=== PATIENT | male | born 1995 | race Caucasian/White ===

== ENCOUNTER 2016-10-25 13:58 | Emergency (ER) | payer OTHER ==
[~2016-10-25] VITALS: Ht 182.9 cm; Wt 73.0 kg
[2016-10-25 14:00] VITALS: TEMP 36.7; Ht 182.9 cm; Wt 73.0 kg
[2016-10-25 14:33] LABS: BASO % 0.3 %; BASO ABS # 0.02 K/uL (0-0.2); COMPLETE YES; EOS % 1.7 %; HEMATOCRIT 44.1 % (42-52); IG% 0.1 %; LYMPH % 42.8 %; LYMPH ABS # 2.98 K/uL (1.2-3.4); MEAN CELL VOLUME 89.1 fL (80-100); MEAN CORPUSCULAR HEMOGLOBIN 30.5 pg (25-34); MEAN CORPUSCULAR HGB CONC 34.2 g/dl (32-36); MEAN PLATELET VOLUME 9.1 fL (7.4-10.4); MONO % 6.6 %; NEUT % 48.5 %; PLATELET COUNT 248 K/uL (130-400); RED BLOOD COUNT 4.95 M/uL (4.7-6.1); WHITE BLOOD COUNT 6.96 K/uL (4.8-10.8)
[2016-10-25 14:45] LABS: ALT/SGPT 22 U/L (12-78); AST/SGOT 12 U/L (15-37); BLOOD UREA NITROGEN 11 mg/dl (7-18); BUN/CREATININE RATIO 12.2 (10-20); CALCIUM 9.2 mg/dl (8.5-10.1); CARBON DIOXIDE 31 mmol/L (21-32); CHLORIDE 105 mmol/L (98-107); CREATININE 0.94 mg/dl (0.60-1.40); GLUCOSE 87 mg/dl (70-99); POTASSIUM 4.1 mmol/L (3.5-5.1); SODIUM 142 mmol/L (136-145)
[2016-10-25 14:50] LABS: ALKALINE PHOSPHATASE 64 U/L (45-117)
--- NOTE | 2016-10-25 15:04 | DIAGNOSTIC IMAGING REPORT ---
SINGLE VIEW CHEST CLINICAL HISTORY: Fever. FINDINGS: 2 AP, portable, upright chest radiographs are obtained. No prior studies are available for comparison at the time of dictation. The examination is degraded by portable technique and patient rotation. The cardiomediastinal silhouette is unremarkable. The lungs and pleural spaces are clear. No pneumothorax is seen. The bony thorax is grossly intact. Nipple piercings are noted. IMPRESSION: No active disease in the chest. Electronically signed by: Mark Munson M.D. 10/25/2016 3:03 PM Dictated Date/Time: 10/25/2016 3:02 PM
--- NOTE | 2016-10-25 16:13 | EMERGENCY ROOM VISIT NOTE ---
History Report prepared by Arcelia: Allie Luna Under the Supervision of: Dr. Ramez Espino D.O. First contact with patient: 14:17 Chief Complaint: CARDIAC ASSESSMENT Stated Complaint: CHEST HEAVINESS,R SIDE FACE,ARM NUMBNESS Nursing Triage Summary: pt to the ED with c/o chest heaviness for several days History of Present Illness The patient is a 21 year old male who presents to the Emergency Room requesting a cardiac assessment for his symptoms that started 2 days ago. The patient states that he was at work this past morning when he started to experience right-sided facial numbness and numbness in the right side of his tongue. He then started to experience numbness in his right arm. He states that his symptoms resolved on their own, but after the numbness he resolved he started to experience a headache and chest heaviness. The patient states that he has been experiencing both the headache and chest heaviness intermittently since then. 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 The patient's friend states that the patient also has a history of heart murmur , but his PCP told him not to worry about it when he was younger. The patient's father has a history of anxiety and an irregular heartbeat. The patient denies any other significant family cardiac history as well as any family history of blood clots. Source of History: patient, spouse/significant other Onset: 2 days ago Position: other (global) Quality: other (cardiac assessment) Timing: intermittent Associated Symptoms: + headache, + chest pain (heaviness), + numbness ( right side of face, right side of tongue, right arm) Review of Systems See HPI for pertinent positives & negatives. A total of 10 systems reviewed and were otherwise negative. Past Medical & Surgical Medical Problems: (1) Candelario's palsy (2) History of cardiac murmur Family History Abnormal heart rhythm in father Anxiety disorder Social History Smoking Status: Current Every Day Smoker Marital Status: single Occupation Status: employed Current/Historical Medications No Active Prescriptions or Reported Meds Allergies Coded Allergies: No Known Allergies (Unverified , 10/25/16) Physical Exam Vital Signs Date Time Temp Pulse Resp B/P (MAP) Pulse Ox O2 Delivery O2 Flow Rate FiO2 10/25/16 16:20 72 18 114/62 97 Room Air 10/25/16 16:00 69 97 Room Air 10/25/16 14:15 78 10/25/16 14:00 36.7 86 16 144/88 100 Room Air Physical Exam VITAL SIGNS: were reviewed as above. GENERAL:Non-toxic in appearance. SKIN: Warm dry and pink. HEAD: Normocephalic and atraumatic. OROPHARYNX: Is clear and moist NECK: Supple without lymphadenopathy or meningismus. LUNGS: clear. HEART: Regular rate and rhythm. ABDOMEN: Soft and nontender. EXTREMITIES: Warm and well perfused. NEUROLOGICALLY: Awake alert and oriented without focal deficit. Cranial nerves 2 -12 are intact. There is no pronator drift. Cerebellar testing is within normal limits. There is no nystagmus. There is no facial droop. Speech is clear. Vision is grossly normal. MUSCULOSKELETAL: Good muscle tone. No evidence of trauma. Medical Decision & Procedures ER Provider Diagnostic Interpretation: Radiology results as stated below per my review and radiologist interpretation: SINGLE VIEW CHEST FINDINGS: 2 AP, portable, upright chest radiographs are obtained. No prior studies are available for comparison at the time of dictation. The examination is degraded by portable technique and patient rotation. The cardiomediastinal silhouette is unremarkable. The lungs and pleural spaces are clear. No pneumothorax is seen. The bony thorax is grossly intact. Nipple piercings are noted. IMPRESSION: No active disease in the chest. Electronically signed by: Mark Munson M.D. 10/25/2016 3:03 PM Dictated Date/Time: 10/25/2016 3:02 PM Laboratory Results 10/25/16 14:15 Red Blood Count 4.95, Mean Corpuscular Volume 89.1, Mean Corpuscular Hemoglobin 30.5, Mean Corpuscular Hemoglobin Concent 34.2, Mean Platelet Volume 9.1, Neutrophils (%) (Auto) 48.5, Lymphocytes (%) (Auto) 42.8, Monocytes (%) (Auto) 6.6, Eosinophils (%) (Auto) 1.7, Basophils (%) (Auto) 0.3, Neutrophils # (Auto) 3.37, Lymphocytes # (Auto) 2.98, Monocytes # (Auto) 0.46, Eosinophils # (Auto) 0.12, Basophils # (Auto) 0.02 10/25/16 14:15 Test 10/25/16 14:15 White Blood Count 6.96 K/uL (4.8-10.8) Red Blood Count 4.95 M/uL (4.7-6.1) Hemoglobin 15.1 g/dL (14.0-18.0) Hematocrit 44.1 % (42-52) Mean Corpuscular Volume 89.1 fL (80-100) Mean Corpuscular Hemoglobin 30.5 pg (25-34) Mean Corpuscular Hemoglobin Concent 34.2 g/dl (32-36) Platelet Count 248 K/uL (130-400) Mean Platelet Volume 9.1 fL (7.4-10.4) Neutrophils (%) (Auto) 48.5 % Lymphocytes (%) (Auto) 42.8 % Monocytes (%) (Auto) 6.6 % Eosinophils (%) (Auto) 1.7 % Basophils (%) (Auto) 0.3 % Neutrophils # (Auto) 3.37 K/uL (1.4-6.5) Lymphocytes # (Auto) 2.98 K/uL (1.2-3.4) Monocytes # (Auto) 0.46 K/uL (0.11-0.59) Eosinophils # (Auto) 0.12 K/uL (0-0.5) Basophils # (Auto) 0.02 K/uL (0-0.2) RDW Standard Deviation 40.4 fL (36.4-46.3) RDW Coefficient of Variation 12.5 % (11.5-14.5) Immature Granulocyte % (Auto) 0.1 % Immature Granulocyte # (Auto) 0.01 K/uL (0.00-0.02) Anion Gap 6.0 mmol/L (3-11) Est Creatinine Clear Calc Drug Dose 129.4 ml/min Estimated GFR () 134.7 Estimated GFR (Non- 116.2 BUN/Creatinine Ratio 12.2 (10-20) Calcium Level 9.2 mg/dl (8.5-10.1) Total Bilirubin 0.5 mg/dl (0.2-1) Direct Bilirubin 0.1 mg/dl (0-0.2) Aspartate Amino Transf (AST/SGOT) 12 U/L (15-37) Alanine Aminotransferase (ALT/SGPT) 22 U/L (12-78) Alkaline Phosphatase 64 U/L (45-117) Troponin I < 0.015 ng/ml (0-0.045) Total Protein 7.8 gm/dl (6.4-8.2) Albumin 4.7 gm/dl (3.4-5.0) Laboratory results as stated above per my review. ECG Indication: chest pain Rate (beats per minute): 74 Rhythm: normal sinus Findings: no acute ischemic change, no ectopy ED Course 1421: Previous medical records were reviewed. The patient was evaluated in room B5. A complete history and physical examination was performed. 1615: On reevaluation, the patient is doing well. I discussed the results and findings with the patient. He verbalized agreement of the treatment plan. He was discharged home. Medical Decision Differential includes acute coronary syndrome, myocardial infarction, CVA, TIA, anemia, infection, pneumonia, UTI, pyelonephritis, poor nutrition, dehydration, electrolyte disturbance,hypoglycemia. Medication Reconciliation: I attest that I have personally reviewed the patient' s current medication list. This is a 21-year-old male who presents to the ED with a chief complaint of heaviness in the chest off and on for the past 2 days. He also has some reports of some numbness in his tongue, right face and right arm at the onset. He denies any symptoms like this at this time. The patient reports a history of Lyme disease and Candelario's palsy in the past. He denies any shortness of breath , fevers or recent illness. He denies any significant medical problems, early family history of cardiac disease or DVT. The patient has a normal exam. His vital signs are stable. His blood pressure was slightly elevated. He has a normal chest x-ray, normal EKG, normal blood work including cardiac enzymes. The patient is asymptomatic at the time of disposition. He is felt to be stable for discharge and outpatient follow-up. Impression Primary Impression: Non-cardiac chest pain Scribe Attestation The scribe's documentation has been prepared under my direction and personally reviewed by me in its entirety. I confirm that the note above accurately reflects all work, treatment, procedures, and medical decision making performed by me. Departure Information Dispostion Home / Self-Care Prescriptions No Active Prescriptions or Reported Meds Referrals Jeremy Awad M.D. (PCP) Forms IMPORTANT VISIT INFORMATION Patient Instructions My [facility] Additional Instructions Follow-up with your doctor for further care and evaluation in 1-2 days. Return to the emergency department for worsening or new symptoms or any concerns. You have been examined and treated today on an emergency basis only. This is not a substitute for, or an effort to provide, complete comprehensive medical care. It is impossible to recognize and treat all injuries or illnesses in a single emergency department visit. It is therefore important that you follow up closely with your doctor. Call as soon as possible for an appointment.
[2016-10-25 16:20] VITALS: BP 114/62; PULSE 72; O2SAT 97
== END 2016-10-25 16:42 | disposition home or self-care (01) ==
LOC: C.EDB 14:00
DX: R07.9 Chest pain, unspecified (principal); G51.0 Bell's palsy; F17.200 Nicotine dependence, unspecified, uncomplicated; Z87.898 Personal history of other specified conditions